=== PATIENT | female | born 1935 | race Caucasian/White ===

== ENCOUNTER 2017-10-08 11:00 | Inpatient (IN) | payer MEDICARE, OTHER ==
[~2017-10-08] VITALS: Ht 162.6 cm; Wt 100.0 kg
[2017-10-08] VITALS (9 sets, daily range): BP systolic 103–137; BP diastolic 41–65
[~2017-10-08 11:00] MED LIST: AMITIZA24 MCG; AMITIZA24 MCG PO; AMITIZA8 MCG PO; DILANTIN100 MG PO; DULCOLAX10 MG/SUPP RC; DUONEB 2.5-0.5 M3 ML UPD; FLEXERIL10 MG PO; IPRAT-ALBUT 0.5-3 ML NEB; K-DUR20 MEQ PO; K-TAB10 MEQ PO; KLONOPIN1 MG PO; LASIX20 MG PO; LASIX40 MG PO; LOPRESSOR50 MG PO; MEGACE400 MG/10 PO; MIRALAX17 GM PO; NORCO 10/325 TA1 TA1 PO; NORCO 5/325 TAB1 TA1 PO; NYSTATIN ORAL SU5 ML PO; NYSTATIN15 GM; ONCOLOGY MOUTHWA5 ML; ONDANSETRON4 MG/2 M3 IV; PEPCID20 MG PO; PERIACTIN4 MG PO; PHENOBARBITAL32.4 MG PO; PROTONIX40 MG PO; SENOKOT-S TABLE1 TAB PO; TUMS500 MG PO
[2017-10-08 13:23] LABS: BASOPHILS 0.1 % (0-2); EOSINOPHILS 0 % (0-7); HEMATOCRIT 38.9 % (36.0-48.0); HEMOGLOBIN 13.4 g/dL (12-16); IMMATURE GRANULOCYTES 0.3 % (0-5); MCH 31.7 pg (26.0-34.0); MCHC 34.4 g/dL (31.0-37.0); MEAN PLATELET VOLUME 10.6 fL (7.4-10.4); MONOCYTES 9.8 % (2-11); NEUTROPHILS 73.8 % (40-80); PLATELET COUNT 183 10x3/uL (130-400); RBC 4.23 10x6/uL (4.00-5.40); RDW 13.6 % (11.5-14.5); WBC 13.4 10x3/uL (4.8-10.8)
[2017-10-08 13:47] LABS: ALBUMIN 3.2 g/dL (3.4-5.0); ANION GAP 9.2 mmol/L (8-16); BILIRUBIN - TOTAL 0.45 mg/dL (0.2-1.3); CALCIUM 8.5 mg/dL (8.5-10.1); CARBON DIOXIDE 33.2 mmol/L (21.0-32.0); POTASSIUM - SERUM 3.4 mmol/L (3.5-5.1); PROTEIN - SERUM 7.3 g/dL (6.4-8.2)
[2017-10-08 14:22] LABS: APPEARANCE CLEAR (CLEAR); BILIRUBIN NEGATIVE (NEGATIVE); COLOR YELLOW (YELLOW); GLUCOSE NEGATIVE (NEGATIVE); KETONE NEGATIVE (NEGATIVE); NITRITE NEGATIVE (NEGATIVE); PROTEIN TRACE mg/dL (NEGATIVE); UROBILINOGEN NORMAL (NORMAL)
[2017-10-08 14:24] LABS: EPITHELIAL CELLS 0-5 /hpf (0-5); RED CELLS - URINE OCC /hpf (0-5); WHITE CELLS - URINE OCC /hpf (0-5)
[2017-10-08 14:25] LABS: BACTERIA MANY /hpf (NONE SEEN); MUCUS <1+ /lpf (NONE SEEN)
[2017-10-08] MEDS ORDERED: REMERON15 MG PO (16:57)
[2017-10-08] MEDS ORDERED: NEURONTIN 300300 MG PO (16:57)
[2017-10-08] MEDS ORDERED: VITAMIN D250000 UNIT PO (20:46)
[2017-10-08] MEDS ORDERED: ULTRAM50 MG PO (20:47)
[2017-10-08] MEDS ORDERED: BENADRYL25 MG PO (20:49)
[2017-10-08] MEDS ORDERED: ACIDOPHILUS-PE1 EACH PO (20:50)
[2017-10-09 04:00] VITALS: BP 136/68
[2017-10-09 06:33] VITALS: BP 103/52; BMI 37.8
[2017-10-09 07:39] VITALS: BP 111/53
[2017-10-09 11:10] VITALS: Ht 162.6 cm; Wt 100.0 kg
[2017-10-09 12:15] VITALS: BP 111/58
[2017-10-09] MEDS ORDERED: DILANTIN100 MG PO (13:28)
[2017-10-09 15:43] VITALS: BP 92/48
[2017-10-09 20:00] VITALS: BP 121/58
[2017-10-10 04:00] VITALS: BP 133/63
[2017-10-10 06:22] LABS: BASOPHILS 0 % (0-2); EOSINOPHILS 0 % (0-7); HEMATOCRIT 35.8 % (36.0-48.0); IMMATURE GRANULOCYTES 0.1 % (0-5); LYMPHOCYTES 23.8 % (15-50); MCH 30.6 pg (26.0-34.0); MCHC 33.5 g/dL (31.0-37.0); MCV 91.3 fL (80.0-100.0); MEAN PLATELET VOLUME 10.8 fL (7.4-10.4); MONOCYTES 4.5 % (2-11); NEUTROPHILS 71.6 % (40-80); PLATELET COUNT 179 10x3/uL (130-400); RBC 3.92 10x6/uL (4.00-5.40); RDW 13.5 % (11.5-14.5)
[2017-10-10 06:32] LABS: WBC 8.1 10x3/uL (4.8-10.8)
[2017-10-10 07:02] LABS: CALCIUM 8.3 mg/dL (8.5-10.1); CARBON DIOXIDE 30.2 mmol/L (21.0-32.0)
[2017-10-10 07:05] LABS: POTASSIUM - SERUM 4.2 mmol/L (3.5-5.1)
[2017-10-10 09:35] VITALS: BP 131/63
[2017-10-10 16:07] VITALS: BP 119/59
[2017-10-10 19:40] VITALS: BP 114/56
[2017-10-10 23:21] VITALS: BP 132/57
[2017-10-11 03:57] VITALS: BP 136/69
[2017-10-11 06:01] LABS: BASOPHILS 0 % (0-2); EOSINOPHILS 0 % (0-7); HEMATOCRIT 36.1 % (36.0-48.0); HEMOGLOBIN 12.2 g/dL (12-16); IMMATURE GRANULOCYTES 0.4 % (0-5); LYMPHOCYTES 16.5 % (15-50); MCH 31.2 pg (26.0-34.0); MCHC 33.8 g/dL (31.0-37.0); MCV 92.3 fL (80.0-100.0); MEAN PLATELET VOLUME 11.8 fL (7.4-10.4); MONOCYTES 8.8 % (2-11); NEUTROPHILS 74.3 % (40-80); PLATELET COUNT 213 10x3/uL (130-400); RBC 3.91 10x6/uL (4.00-5.40); RDW 13.7 % (11.5-14.5)
[2017-10-11 06:02] LABS: WBC 11.4 10x3/uL (4.8-10.8)
[2017-10-11 06:31] LABS: ANION GAP 10.4 mmol/L (8-16); CALCIUM 8.5 mg/dL (8.5-10.1); CARBON DIOXIDE 30.1 mmol/L (21.0-32.0); CREATININE - SERUM 0.9 mg/dL (0.6-1.3); POTASSIUM - SERUM 4.5 mmol/L (3.5-5.1)
[2017-10-11 08:28] VITALS: BP 131/62
[2017-10-11 12:36] VITALS: BP 108/51
[2017-10-11 16:00] VITALS: BP 121/52
[2017-10-11 23:03] VITALS: BP 118/60
[2017-10-12 03:28] VITALS: BP 117/56
[2017-10-12 06:18] LABS: BASOPHILS 0.1 % (0-2); EOSINOPHILS 0.1 % (0-7); HEMATOCRIT 37.3 % (36.0-48.0); HEMOGLOBIN 12.4 g/dL (12-16); IMMATURE GRANULOCYTES 0.3 % (0-5); LYMPHOCYTES 23.5 % (15-50); MCH 30.7 pg (26.0-34.0); MCHC 33.2 g/dL (31.0-37.0); MCV 92.3 fL (80.0-100.0); MEAN PLATELET VOLUME 11.7 fL (7.4-10.4); MONOCYTES 12.6 % (2-11); NEUTROPHILS 63.4 % (40-80); PLATELET COUNT 219 10x3/uL (130-400); RBC 4.04 10x6/uL (4.00-5.40)
[2017-10-12 06:44] LABS: ANION GAP 10.1 mmol/L (8-16); CALCIUM 8.4 mg/dL (8.5-10.1); CARBON DIOXIDE 30.3 mmol/L (21.0-32.0); POTASSIUM - SERUM 4.4 mmol/L (3.5-5.1)
[2017-10-12 08:23] VITALS: BP 141/69
[2017-10-12 12:33] VITALS: BP 105/46
[2017-10-12 17:13] VITALS: BP 133/58
[2017-10-12 22:51] VITALS: BP 155/65
[2017-10-13 06:26] LABS: BASOPHILS 0 % (0-2); EOSINOPHILS 0.3 % (0-7); HEMATOCRIT 37.3 % (36.0-48.0); HEMOGLOBIN 12.3 g/dL (12-16); IMMATURE GRANULOCYTES 0.3 % (0-5); LYMPHOCYTES 31.2 % (15-50); MCH 30.7 pg (26.0-34.0); MONOCYTES 14.9 % (2-11); NEUTROPHILS 53.3 % (40-80); PLATELET COUNT 196 10x3/uL (130-400); RBC 4.01 10x6/uL (4.00-5.40); RDW 13.8 % (11.5-14.5); WBC 7.2 10x3/uL (4.8-10.8)
[2017-10-13 06:35] LABS: CALCIUM 8.1 mg/dL (8.5-10.1); CARBON DIOXIDE 28.3 mmol/L (21.0-32.0); CREATININE - SERUM 0.9 mg/dL (0.6-1.3); POTASSIUM - SERUM 4.3 mmol/L (3.5-5.1)
[2017-10-13 06:44] VITALS: BP 146/66
[2017-10-13 08:48] VITALS: BP 141/78
[2017-10-13 13:28] VITALS: BP 126/76
[2017-10-13 16:51] VITALS: BP 104/55
[2017-10-13 19:47] VITALS: BP 146/66
[2017-10-13 23:42] VITALS: BP 150/83
[2017-10-14 04:18] VITALS: BP 132/69
[2017-10-14 06:57] LABS: BASOPHILS 0.3 % (0-2); EOSINOPHILS 0.9 % (0-7); HEMATOCRIT 37.1 % (36.0-48.0); HEMOGLOBIN 12.4 g/dL (12-16); IMMATURE GRANULOCYTES 0.3 % (0-5); LYMPHOCYTES 30.5 % (15-50); MCH 30.8 pg (26.0-34.0); MCHC 33.4 g/dL (31.0-37.0); MCV 92.3 fL (80.0-100.0); MEAN PLATELET VOLUME 11.4 fL (7.4-10.4); MONOCYTES 14.4 % (2-11); NEUTROPHILS 53.6 % (40-80); PLATELET COUNT 200 10x3/uL (130-400); RBC 4.02 10x6/uL (4.00-5.40); RDW 13.9 % (11.5-14.5); WBC 7.7 10x3/uL (4.8-10.8)
[2017-10-14 07:13] LABS: ANION GAP 14.2 mmol/L (8-16); CALCIUM 8.3 mg/dL (8.5-10.1); CARBON DIOXIDE 25.7 mmol/L (21.0-32.0); CREATININE - SERUM 0.8 mg/dL (0.6-1.3); POTASSIUM - SERUM 4.9 mmol/L (3.5-5.1)
[2017-10-14 08:06] VITALS: BP 139/59
[2017-10-14 11:34] VITALS: BP 134/72
[2017-10-14 15:40] VITALS: BP 141/69
[2017-10-14 19:46] VITALS: BP 142/71
[2017-10-14 23:25] VITALS: BP 137/59
[2017-10-15 03:42] VITALS: BP 126/72
[2017-10-15 05:39] LABS: BASOPHILS 0.1 % (0-2); HEMATOCRIT 36.9 % (36.0-48.0); HEMOGLOBIN 12.4 g/dL (12-16); IMMATURE GRANULOCYTES 0.4 % (0-5); LYMPHOCYTES 30.5 % (15-50); MCH 31.2 pg (26.0-34.0); MCHC 33.6 g/dL (31.0-37.0); MCV 92.7 fL (80.0-100.0); MEAN PLATELET VOLUME 11.3 fL (7.4-10.4); MONOCYTES 12.7 % (2-11); NEUTROPHILS 55.3 % (40-80); PLATELET COUNT 197 10x3/uL (130-400); RBC 3.98 10x6/uL (4.00-5.40); RDW 13.8 % (11.5-14.5); WBC 8.1 10x3/uL (4.8-10.8)
[2017-10-15 06:00] LABS: ALBUMIN 2.8 g/dL (3.4-5.0); ANION GAP 10.1 mmol/L (8-16); BILIRUBIN - TOTAL 0.17 mg/dL (0.2-1.3); CALCIUM 8.1 mg/dL (8.5-10.1); CARBON DIOXIDE 28.3 mmol/L (21.0-32.0); POTASSIUM - SERUM 4.4 mmol/L (3.5-5.1); PROTEIN - SERUM 6.2 g/dL (6.4-8.2)
[2017-10-15 07:54] VITALS: BP 148/64
[2017-10-15 12:18] VITALS: BP 128/67
[2017-10-15 15:44] VITALS: BP 107/53
[2017-10-15 19:17] VITALS: BP 156/75
[2017-10-16 00:23] VITALS: BP 126/67
[2017-10-16 04:32] VITALS: BP 116/63
[2017-10-16 04:50] LABS: BASOPHILS 0.2 % (0-2); EOSINOPHILS 0.7 % (0-7); HEMATOCRIT 37.2 % (36.0-48.0); HEMOGLOBIN 12.4 g/dL (12-16); IMMATURE GRANULOCYTES 0.4 % (0-5); LYMPHOCYTES 27.7 % (15-50); MCH 30.8 pg (26.0-34.0); MCHC 33.3 g/dL (31.0-37.0); MCV 92.5 fL (80.0-100.0); MEAN PLATELET VOLUME 10.9 fL (7.4-10.4); MONOCYTES 11.4 % (2-11); NEUTROPHILS 59.6 % (40-80); PLATELET COUNT 187 10x3/uL (130-400); RBC 4.02 10x6/uL (4.00-5.40); RDW 13.8 % (11.5-14.5); WBC 8.1 10x3/uL (4.8-10.8)
[2017-10-16 05:11] LABS: ALBUMIN 2.8 g/dL (3.4-5.0); ANION GAP 8.8 mmol/L (8-16); BILIRUBIN - TOTAL 0.21 mg/dL (0.2-1.3); CALCIUM 8.3 mg/dL (8.5-10.1); CARBON DIOXIDE 30.3 mmol/L (21.0-32.0); POTASSIUM - SERUM 4.1 mmol/L (3.5-5.1); PROTEIN - SERUM 6.3 g/dL (6.4-8.2)
[2017-10-16 09:31] VITALS: BP 145/69
[2017-10-16 16:44] VITALS: BP 132/61
[2017-10-16] MEDS ORDERED: REMERON45 MG PO (18:21)
[2017-10-16 20:24] VITALS: BP 133/64
[2017-10-16 23:41] VITALS: BP 121/66
[2017-10-17 06:36] LABS: BASOPHILS 0.3 % (0-2); EOSINOPHILS 0.9 % (0-7); HEMATOCRIT 37.4 % (36.0-48.0); HEMOGLOBIN 12.3 g/dL (12-16); IMMATURE GRANULOCYTES 0.3 % (0-5); LYMPHOCYTES 30.7 % (15-50); MCH 30.6 pg (26.0-34.0); MCHC 32.9 g/dL (31.0-37.0); MEAN PLATELET VOLUME 11.2 fL (7.4-10.4); MONOCYTES 12.4 % (2-11); NEUTROPHILS 55.4 % (40-80); PLATELET COUNT 193 10x3/uL (130-400); RBC 4.02 10x6/uL (4.00-5.40); RDW 13.8 % (11.5-14.5); WBC 7.5 10x3/uL (4.8-10.8)
[2017-10-17 06:41] LABS: ALBUMIN 2.9 g/dL (3.4-5.0); BILIRUBIN - TOTAL 0.26 mg/dL (0.2-1.3); CALCIUM 8.3 mg/dL (8.5-10.1); CARBON DIOXIDE 30.5 mmol/L (21.0-32.0); CREATININE - SERUM 0.9 mg/dL (0.6-1.3); POTASSIUM - SERUM 4.5 mmol/L (3.5-5.1)
[2017-10-17 08:09] VITALS: BP 140/70
[2017-10-17 12:47] VITALS: BP 133/57
[2017-10-17 15:58] VITALS: BP 138/59
[2017-10-17 18:10] LABS: AEROBE ID Final report (())
[2017-10-17 21:56] VITALS: BP 123/59
[2017-10-17 23:27] VITALS: BP 100/56
[2017-10-18 03:28] VITALS: BP 149/69
[2017-10-18 07:43] LABS: BASOPHILS 0.3 % (0-2); EOSINOPHILS 0.6 % (0-7); HEMATOCRIT 37.1 % (36.0-48.0); HEMOGLOBIN 12.4 g/dL (12-16); IMMATURE GRANULOCYTES 0.4 % (0-5); LYMPHOCYTES 25.8 % (15-50); MCH 30.8 pg (26.0-34.0); MCHC 33.4 g/dL (31.0-37.0); MCV 92.3 fL (80.0-100.0); MEAN PLATELET VOLUME 10.9 fL (7.4-10.4); MONOCYTES 14.1 % (2-11); NEUTROPHILS 58.8 % (40-80); PLATELET COUNT 181 10x3/uL (130-400); RBC 4.02 10x6/uL (4.00-5.40); RDW 13.8 % (11.5-14.5); WBC 7.9 10x3/uL (4.8-10.8)
[2017-10-18 08:07] LABS: ALBUMIN 2.9 g/dL (3.4-5.0); BILIRUBIN - TOTAL 0.33 mg/dL (0.2-1.3); CALCIUM 8.4 mg/dL (8.5-10.1); CREATININE - SERUM 0.9 mg/dL (0.6-1.3); PROTEIN - SERUM 6.5 g/dL (6.4-8.2)
[2017-10-18 08:49] VITALS: BP 113/45
[2017-10-18 11:28] VITALS: BP 158/65
[2017-10-18 16:05] VITALS: BP 128/60
[2017-10-18 20:30] VITALS: BP 124/57
[2017-10-19 04:30] VITALS: BP 146/64
[2017-10-19 06:49] LABS: BASOPHILS 0.5 % (0-2); EOSINOPHILS 0.7 % (0-7); HEMATOCRIT 37.2 % (36.0-48.0); HEMOGLOBIN 12.2 g/dL (12-16); IMMATURE GRANULOCYTES 0.3 % (0-5); LYMPHOCYTES 29.4 % (15-50); MCH 30.6 pg (26.0-34.0); MCHC 32.8 g/dL (31.0-37.0); MCV 93.2 fL (80.0-100.0); MEAN PLATELET VOLUME 11.3 fL (7.4-10.4); MONOCYTES 14.3 % (2-11); NEUTROPHILS 54.8 % (40-80); PLATELET COUNT 182 10x3/uL (130-400); RBC 3.99 10x6/uL (4.00-5.40); RDW 13.6 % (11.5-14.5); WBC 7.6 10x3/uL (4.8-10.8)
[2017-10-19 07:17] LABS: ALBUMIN 2.9 g/dL (3.4-5.0); BILIRUBIN - TOTAL 0.3 mg/dL (0.2-1.3); CALCIUM 8.2 mg/dL (8.5-10.1); CARBON DIOXIDE 34.3 mmol/L (21.0-32.0); CREATININE - SERUM 0.9 mg/dL (0.6-1.3); POTASSIUM - SERUM 4.3 mmol/L (3.5-5.1); PROTEIN - SERUM 6.1 g/dL (6.4-8.2)
[2017-10-19 09:10] VITALS: BP 145/55
[2017-10-19 14:32] VITALS: BP 114/60
[2017-10-19 17:00] VITALS: BP 144/54
[2017-10-19 23:56] VITALS: BP 108/56
[2017-10-20 00:44] VITALS: BP 108/56
[2017-10-20 05:30] VITALS: BP 136/63
[2017-10-20 06:22] LABS: BASOPHILS 0.4 % (0-2); EOSINOPHILS 0.7 % (0-7); HEMATOCRIT 37.2 % (36.0-48.0); HEMOGLOBIN 12.3 g/dL (12-16); IMMATURE GRANULOCYTES 0.4 % (0-5); MCH 31.1 pg (26.0-34.0); MCHC 33.1 g/dL (31.0-37.0); MCV 93.9 fL (80.0-100.0); MEAN PLATELET VOLUME 12.2 fL (7.4-10.4); MONOCYTES 12.9 % (2-11); NEUTROPHILS 54.6 % (40-80); PLATELET COUNT 162 10x3/uL (130-400); RBC 3.96 10x6/uL (4.00-5.40); RDW 13.8 % (11.5-14.5); WBC 7.4 10x3/uL (4.8-10.8)
[2017-10-20 06:27] LABS: ALBUMIN 2.8 g/dL (3.4-5.0); ANION GAP 7.8 mmol/L (8-16); BILIRUBIN - TOTAL 0.31 mg/dL (0.2-1.3); CALCIUM 8.5 mg/dL (8.5-10.1); CARBON DIOXIDE 29.3 mmol/L (21.0-32.0); CREATININE - SERUM 0.8 mg/dL (0.6-1.3); POTASSIUM - SERUM 4.1 mmol/L (3.5-5.1); PROTEIN - SERUM 6.4 g/dL (6.4-8.2)
[2017-10-20 08:33] VITALS: BP 139/64
[2017-10-20 12:06] VITALS: BP 98/54
[2017-10-20] MEDS ORDERED: AUGMENTIN 875-11 TAB PO (12:31)
[2017-10-20] MEDS ORDERED: METOPROLOL TART50 MG PO (12:31)
== END 2017-10-20 14:30 | DRG 553 ==
LOC: D.ER 11:00 → D.MS 17:02
PROVIDERS: Emergency Medicine; Family Medicine; Internal Medicine Nephrology
PROC: 3E0U33Z Introduction of Anti-inflammatory into Joints, Percutaneous Approach (ICD-10-PCS; principal; 2017-10-09)
PROC: 3E0U3BZ Introduction of Anesthetic Agent into Joints, Percutaneous Approach (ICD-10-PCS; 2017-10-09)
DX: M17.11 Unilateral primary osteoarthritis, right knee (principal); R53.2 Functional quadriplegia; N39.0 Urinary tract infection, site not specified; W19.XXXA Unspecified fall, initial encounter; I12.9 Hypertensive chronic kidney disease with stage 1 through stage 4 chronic kidney disease, or unspecified chronic kidney disease; G72.9 Myopathy, unspecified; N18.9 Chronic kidney disease, unspecified; Z74.01 Bed confinement status; R30.0 Dysuria; G40.909 Epilepsy, unspecified, not intractable, without status epilepticus; M54.5 Low back pain; E87.6 Hypokalemia; R42 Dizziness and giddiness; Z85.038 Personal history of other malignant neoplasm of large intestine; Z87.891 Personal history of nicotine dependence

== ENCOUNTER 2019-07-18 17:10 | Inpatient (IN) | payer MEDICARE, OTHER ==
[~2019-07-18] VITALS: Ht 162.6 cm; Wt 88.2 kg
[~2019-07-18 17:10] MED LIST changes: +ACIDOPHILUS-PE1 EACH PO; +AUGMENTIN 875-11 TAB PO; +BENADRYL25 MG PO; +METOPROLOL TART50 MG PO; +NEURONTIN 300300 MG PO; +REMERON15 MG PO; +REMERON45 MG PO; +ULTRAM50 MG PO; +VITAMIN D250000 UNIT PO
--- NOTE | 2019-07-18 17:17 | NUR ---
PT TO CT AT 1712 VIA [employer].
--- NOTE | 2019-07-18 17:25 | NUR ---
patient seen by tiffany bowers
--- NOTE | 2019-07-18 17:28 | NUR ---
contacted celia at this time
[2019-07-18 17:37] LABS: BASOPHILS 0.5 % (0-2); EOSINOPHILS 1.1 % (0-7); HEMATOCRIT 39.7 % (36.0-48.0); HEMOGLOBIN 12.5 g/dL (12-16); IMMATURE GRANULOCYTES 0.3 % (0-5); LYMPHOCYTES 32.9 % (15-50); MCH 30.9 pg (26.0-34.0); MCHC 31.5 g/dL (31.0-37.0); MCV 98.3 fL (80.0-100.0); MONOCYTES 9.9 % (2-11); NEUTROPHILS 55.3 % (40-80); RBC 4.04 10x6/uL (4.00-5.40); WBC 7.5 10x3/uL (4.8-10.8)
[2019-07-18 17:39] LABS: PLATELET COUNT 283 10x3/uL (130-400)
--- NOTE | 2019-07-18 17:44 | NUR ---
contacted shanel hoskins at [phone]
--- NOTE | 2019-07-18 17:44 | NUR ---
pt seen by edp dr. bowers at [phone]
[2019-07-18 17:45] LABS: APTT 31.6 SECONDS (22.8-39.4); INR 0.98 (0.85-1.17); PROTIME 12.9 SECONDS (11.6-15.0)
[2019-07-18 17:52] LABS: ANION GAP 10.9 mmol/L (8-16); CALCIUM 8.6 mg/dL (8.5-10.1); CARBON DIOXIDE 26.8 mmol/L (21.0-32.0); CREATININE - SERUM 0.9 mg/dL (0.6-1.3); POTASSIUM - SERUM 3.7 mmol/L (3.5-5.1)
[2019-07-18 17:57] LABS: ALBUMIN 2.7 g/dL (3.4-5.0); BILIRUBIN - TOTAL 0.31 mg/dL (0.2-1.3); PROTEIN - SERUM 7.1 g/dL (6.4-8.2)
--- NOTE | 2019-07-18 18:12 | NUR ---
NO TPA PER DR SERRA NEUROLOGY. PT HAS MASS.
--- NOTE | 2019-07-18 18:58 | NUR ---
SPOKE WITH LASHAWN NIX, DAUGHTER AT [phone]
[2019-07-18 19:41] VITALS: BP 195/74
[2019-07-18 19:44] VITALS: BP 180/74
[2019-07-18 20:00] VITALS: BP 174/70
--- NOTE | 2019-07-18 20:12 | NUR ---
RECEIVED TO ROOM 2202 VIA [employer] FROM ER. ALERT.ORIENTED TO SELF. SL TO RAC INTACT WIHTOUT REDNESS OR EDEMA NOTED.LEFT SIDED WEAKNESS TO UP AND LOWER EXTREMITIES. ABLE TO FOLLOW COMMANDS. FALL PRECAUTIONS IN PLACE.
[2019-07-18] MEDS ORDERED: DONEPEZIL HCL5 MG PO (22:10)
[2019-07-18] MEDS ORDERED: LEXAPRO20 MG PO (22:15)
[2019-07-18] MEDS ORDERED: ACETAMINOPHEN325 MG PO (22:34)
[2019-07-19] VITALS (7 sets, daily range): BP systolic 127–174; BP diastolic 51–79; Ht 162.6 cm; Wt 88.2 kg
--- NOTE | 2019-07-19 08:10 | NUR ---
PT RESTING IN BED REQUESTING BED BROOKS. ASSISTED PT WITH BED BROOKS AT THIS TIME. VOIDED 150ML YELLOW URINE. REPORTS PAIN 4/10 AT THIS TIME. SALINE LOC TO RIGHT AC INTACT. PT DENIES FURTHER NEEDS AT THIS TIME. CL WITHIN REACH. ENCOURAGED TO CALL WITH NEEDS.
--- NOTE | 2019-07-19 20:05 | NUR ---
ORIENTED TO SELF ONLY. CONFUSED. AMPARO ALARM ON. TALKS TO SELF AND OTHERS NOT PRESENT. DIFF FOLLOWING SIMPLE COMMANDS. GEN WEAKNESS. YELLS OUT AT TIMES. INCONT. PUREWICK APPLIED AT THIS TIME. RESP EVEN AND NONLABORED. EDEMA NOTED TO BLE. NS @ 50 MLHR INFUSING IN RT AC BUT ALARMS OFTEN BECAUSE SHE KEEPS ARM BENT. SR ELEVATED X2. CL IN REACH.
--- NOTE | 2019-07-20 00:34 | NUR ---
YELLING OUT. CONFUSED. DIFF TO REDIRECT. ORIENTED TO SELF ONLY. AMPARO ALARM ON. CL IN REACH.
[2019-07-20 00:45] VITALS: BP 126/55
--- NOTE | 2019-07-20 01:04 | NUR ---
LAYING IN BED. HAS BEEN AWAKE MOST OF THE NIGHT. CONT CONFUSION. YELLS OUT AT TIMES AND TALKS TO PEOPLE NOT PRESENT. AMPARO ALARM ON. CL IN REACH.
--- NOTE | 2019-07-20 02:57 | NUR ---
RESTING IN BED WITH EYES CLOSED. RESP EVEN AND NONLABORED. PUREWICK EMPTIED AT THIS TIME. NO DISTRESS. CL IN REACH. AMPARO ALARM ON.
[2019-07-20 05:57] VITALS: BP 167/65
--- NOTE | 2019-07-20 07:15 | NUR ---
REC'D IN WALKING ROUND PT RESTING WITH EYES CLOSED EASILY TO AROUSED WHEN NAME IS CALLED. RESP EVEN AND UNLABORED WITH NO DISTRESS NOTED. CAN EXPRESS NEEDS AND WANTS. ASSESSMENT COMPLETED.. C/L IN REACH AT BEDSIDE.
[2019-07-20 09:18] VITALS: BP 155/74
--- NOTE | 2019-07-20 10:36 | NUR ---
I have reviewed this patient and I concur with the Shift Assessment completed by the Licensed Practical Nurse today this shift.
[2019-07-20 13:21] VITALS: BP 113/53
--- NOTE | 2019-07-20 14:32 | NUR ---
REPORT WAS CALLED AND GIVEN TO CHARGE NURSE AT [facility]. IV DC AT THIS TIME. AMBULANCE WAS CALLED FOR TRANSPORT.
--- NOTE | 2019-07-20 14:56 | MORECARE ---
CASE MANAGEMENT DISCHARGE SUMMARY PATIENT: CHRIS CARRENO UNIT: [id number] ADM DATE: 07/18/19 AGE: 84 : 36 SEX: F ROOM/BED: D.2202 AUTHOR: LARISA CASTAÑEDA PHYSICIAN: REFERRING PHYSICIAN: KAJAL MAZA MD DATE OF SERVICE: 07/20/19 Discharge Plan Patient Name: CHRIS CARRENO [facility] [facility] 1935 Planned Disposition: Nursing Facility [facility] Cert Anticipated Discharge Date: Discharge Date: Expected LOS: Initial Reviewer: [email or web address] Initial Review Date: 07/18/2019 Generated: 07/20/19 3:55 pm DCPIA - Discharge Planning Initial Assessment Updated by [email or web address]: Juanita Jamil on 07/20/19 2:51 pm * Is the patient Alert and Oriented? No * [place] [facility] * [place] [facility] * Preadmission Environment Psychological Operations Specialist [facility] * Facility Name [facility] [place] * ADLs Total Dependent * List name and contact numbers for known caregivers / representatives who currently or will assist patient after discharge: [facility]WN [facility]- [phone] * Verbal permission to speak to the caregivers and representatives has been obtained from the patient. Yes * Additional services required to return to the preadmission environment? No * Can the patient safely return to the preadmission environment? Yes * Has this patient been hospitalized within the prior 30 days at any hospital? No Patient Name: CHRIS CARRENO Page [id number] at 1456 All edits/amendments must be made on the electronic document DICTATION DATE: 07/20/19 1455 SERVICE DISPATCHER: COOPER 07/20/19 1455 RPT#: [id number] DC DATE: STATUS: ADM IN [facility] [address] [place] [address] END OF REPORT
--- NOTE | 2019-07-20 15:03 | MORECARE ---
CASE MANAGEMENT DISCHARGE SUMMARY PATIENT: CHRIS CARRENO UNIT: [id number] ADM DATE: 07/18/19 AGE: 84 : 36 SEX: F ROOM/BED: D.2202 AUTHOR: GARRYDOC PHYSICIAN: REFERRING PHYSICIAN: KAJAL MAZA MD DATE OF SERVICE: 07/20/19 Discharge Plan Patient Name: CHRIS CARRENO Facility: [facility]:[place] : 1935 Planned Disposition: Nursing Facility [facility] Cert Anticipated Discharge Date: Discharge Date: Expected LOS: Initial Reviewer: [email or web address] Initial Review Date: 07/18/2019 Generated: 07/20/19 4:02 pm Comments DCP- Discharge Planning Updated by [email or web address]: Juanita Jamil on 07/20/19 1:[address] Patient Name: CHRIS CARRENO Admission Status: ER Accout number: [id number] Admission Date: 07-18-2019 : 1935 Admission Diagnosis: Attending: KAJAL MAZA Current LOS: 2 Anticipated DC Date: Planned Disposition: Nursing Facility [facility] Cert Primary Insurance: MEDICARE A & B Discharge Planning Comments: CM SPOKE WITH CRISS HARDIN REGARDING DISCHARGE PLANNING. PATIENT IS A RESIDENT AT THE [facility] AND PLANS TO RETURN THERE UPON DISCHARGE. PATIENT HAD A HOSPICE CONSULT FOR [facility]. THE [facility] ISN'T ACCEPTING ANY HOSPICE REFERRALS AT THIS TIME D/T QUARANTINE. CM RELAYED MESSAGE TO LASHAWN AND SHE AGREES TO LET PATIENT RETURN TO THE [facility] AND WILL CONSULT HOSPICE LATER IF NEEDED. CM WILL CONTINUE TO FOLLOW AND ASSIST NEEDED WITH DISCHARGE PLANNING NEEDS. Diversified Crops Supervisor: Juanita Jamil DCPIA - Discharge Planning Initial Assessment Updated by [email or web address]: Juanita Jamil on 07/20/19 2:51 pm * Is the patient Alert and Oriented? No * PCP [facility] * Pharmacy [facility] * Preadmission Environment [facility] [employer] [facility] * Facility Name [facility] * ADLs Total Dependent * List name and contact numbers for known caregivers / representatives who currently or will assist patient after discharge: LASHAWN - [facility]- [phone] * Verbal permission to speak to the caregivers and representatives has been obtained from the patient. Yes * Additional services required to return to the preadmission environment? No * Can the patient safely return to the preadmission environment? Yes * Has this patient been hospitalized within the prior 30 days at any hospital? No Last DP export: 07/20/19 1:56 p Patient Name: CHRIS CARRENO Page [id number] at 1503 All edits/amendments must be made on the electronic document DICTATION DATE: 07/20/19 150 BANANA EXPERT: COOPER 07/20/19 150 RPT#: [id number] DC DATE: STATUS: ADM IN [facility] [address] [place] [address] END OF REPORT
--- NOTE | 2019-07-20 15:10 | NUR ---
OT NOTE: PT CONFUSED AND REQUIRED MODERATE CUES FOR INCREASED PARTICIPATION. PT COMPLETED SIDE ROLLING WITH MAX A. PT COMPLETED SUPINE TO SIT AT EOB WITH MAX A . PT REQUIRED MOD/MIN A TO MAINTAIN STATIC BALANCE AT EOB. PT REQUIRED MAX A WITH LB HYGIENE TASKS. PT REQUIRED MOD/MAX WITH UB HYGIENE TASKS. [phone] THANK YOU,MAYI MEJIA
--- NOTE | 2019-07-20 15:32 | NUR ---
OT NOTE: PT ALERT BUT VERY CONFUSED. SIGNIFICANT DIFFICULTY WITH ATTEMPTS AT FEEDING. VERY DISTRACTABLE AND DIFFICULT TO STAY ON TASK. MAX ASSIST WITH SIMPLE GROOMING; MAX ASSIST WITH BED MOB; ROM ACT TO L UE. ALANNA GERRADO, OTR/L [phone]
--- NOTE | 2019-07-20 15:32 | NUR ---
AMBULANCE HER TO TRANSPORT PT BACK TO [facility] AT THIS TIME IN STABLE CONDITION UPON DC.
--- NOTE | 2019-07-20 21:55 | MORECARE ---
CASE MANAGEMENT DISCHARGE SUMMARY PATIENT: CHRIS CARRENO UNIT: [id number] ADM DATE: 07/18/19 AGE: 84 : 36 SEX: F ROOM/BED: D.2202 AUTHOR: GARRY,DOC PHYSICIAN: REFERRING PHYSICIAN: KAJAL MAZA MD DATE OF SERVICE: 07/20/19 Discharge Plan Patient Name: CHRIS CARRENO Facility: [facility]:[place] : 1935 Planned Disposition: Nursing Facility [facility] Cert Anticipated Discharge Date: Discharge Date: 07/20/2019 Expected LOS: Initial Reviewer: [email or web address] Initial Review Date: 07/18/2019 Generated: 07/20/19 10:55 pm Comments DCP- Discharge Planning Updated by [email or web address]: Juanita Jamil on 07/20/19 1:[address] Patient Name: CHRIS CARRENO Admission Status: ER Accout number: [id number] Admission Date: 07-18-2019 : 1935 Admission Diagnosis: Attending: KAJAL MAZA Current LOS: 2 Anticipated DC Date: Planned Disposition: Nursing Facility [facility] Cert Primary Insurance: MEDICARE A & B Discharge Planning Comments: CM SPOKE WITH CRISS HARDIN REGARDING DISCHARGE PLANNING. PATIENT IS A RESIDENT AT THE [facility] AND PLANS TO RETURN THERE UPON DISCHARGE. PATIENT HAD A HOSPICE CONSULT FOR [facility]. THE [facility] ISN'T ACCEPTING ANY HOSPICE REFERRALS AT THIS TIME D/T [facility]. CM RELAYED MESSAGE TO LASHAWN AND SHE AGREES TO LET PATIENT RETURN TO THE [facility] AND WILL CONSULT HOSPICE LATER IF NEEDED. CM WILL CONTINUE TO FOLLOW AND ASSIST NEEDED WITH DISCHARGE PLANNING NEEDS. Beater Tender: Juanita Jamil DCPIA - Discharge Planning Initial Assessment Updated by [email or web address]: Juanita Jamil on 07/20/19 2:51 pm * Is the patient Alert and Oriented? No * PCP [facility] * Pharmacy [facility] * Preadmission Environment [facility] * Facility Name [facility] * ADLs Total Dependent * List name and contact numbers for known caregivers / representatives who currently or will assist patient after discharge: LASHAWN - [place]- [phone] * Verbal permission to speak to the caregivers and representatives has been obtained from the patient. Yes * Additional services required to return to the preadmission environment? No * Can the patient safely return to the preadmission environment? Yes * Has this patient been hospitalized within the prior 30 days at any hospital? No Last DP export: 07/20/19 2:03 p Patient Name: CHRIS CARRENO Page [id number] at 2153 All edits/amendments must be made on the electronic document DICTATION DATE: 07/20/192154 ACID PURIFIER: COOPER 07/20/192154 RPT#: [id number] DC DATE:07/20/19 STATUS: DIS IN [facility] [address] [place] [address] END OF REPORT
== END 2019-07-20 15:34 | DRG 54 ==
LOC: D.ER 17:10 → D.MS 18:51
PROVIDERS: Emergency Medicine; ADMIT Legal Medicine; ATTEND Legal Medicine
DX: C71.1 Malignant neoplasm of frontal lobe (principal); R53.2 Functional quadriplegia; R40.2344 Coma scale, best motor response, flexion withdrawal, 24 hours or more after hospital admission; I12.9 Hypertensive chronic kidney disease with stage 1 through stage 4 chronic kidney disease, or unspecified chronic kidney disease; N18.9 Chronic kidney disease, unspecified; G40.909 Epilepsy, unspecified, not intractable, without status epilepticus; R40.2144 Coma scale, eyes open, spontaneous, 24 hours or more after hospital admission; R40.2244 Coma scale, best verbal response, confused conversation, 24 hours or more after hospital admission